=== PATIENT | male | born 2000 | race Two or more races ===

== ENCOUNTER → 2024-11-15 | Outpatient (CLI) | payer MEDICAID, SELFPAY ==
--- NOTE | 2024-11-15 15:43 | XR_ITS ---
Examination: Fingers, left hand fifth digit 3 views Technique: AP, oblique, lateral views left hand fifth digit 3 views. Exam date and time: November 07, 2024 1601 hours INDICATIONS: Injury to the hand October 27, 2024 with fifth digit pain. FINDINGS: 1.5 mm displaced acute chip fracture off the palmar base middle phalanx fifth digit No dislocation IMPRESSION: Positive for small acute displaced chip fracture off the palmar base middle phalanx fifth digit
== END | disposition home or self-care (01) ==
PROVIDERS: PCP Physician Assistant; Referring Provider Physician Assistant; Visit Provider Physician Assistant
DX: S62.627A Displaced fracture of middle phalanx of left little finger, initial encounter for closed fracture (principal); X58.XXXA Exposure to other specified factors, initial encounter
CPT/HCPCS: 73140

== ENCOUNTER → 2024-12-01 | Outpatient (CLI) | payer MEDICAID, SELFPAY ==
--- NOTE | 2024-12-01 16:11 | XR_ITS ---
Examination: Wrist, left 3 views Technique: Wrist AP, oblique, lateral 3 views Date and time of exam: December 01, 2024 at 1642 hours INDICATIONS: Injury to the wrist one month ago, wrist pain. FINDINGS: Tiny chip fracture off the base of the proximal phalanx third digit Distal radius distal ulna carpal bones appear intact IMPRESSION: Tiny chip fracture off the base of the proximal phalanx third digit
--- NOTE | 2024-12-01 16:11 | XR_ITS ---
Examination: Hand, left 3 views Technique: Hand AP, oblique, lateral 3 views Date and time of exam: December 01, 2024 1652 hours INDICATIONS: Football injury to the hand one month ago with persistent pain FINDINGS: 1 mm chip fracture off the base of the proximal phalanx third digit No dislocation No foreign body IMPRESSION: 1 mm chip fracture off the base of the proximal phalanx third digit with displacement There is no true lateral view of the fifth digit Suggest follow-up true lateral views fourth and fifth digits as clinically warranted
== END | disposition home or self-care (01) ==
PROVIDERS: PCP Physician Assistant
DX: S62.613A Displaced fracture of proximal phalanx of left middle finger, initial encounter for closed fracture (principal); S69.92XA Unspecified injury of left wrist, hand and finger(s), initial encounter; Y93.61 Activity, american tackle football
CPT/HCPCS: 73110; 73130

== ENCOUNTER 2025-03-08 10:30 | Outpatient (RCR) | payer MEDICAID, SELFPAY ==
--- NOTE | 2025-02-27 16:09 | PT.OIERPT ---
PT OP Initial Eval Patient Information Outpatient Physical Therapy Treatment Date: 02/27/25 Visit Reasons: fx left little finger Medical Diagnosis: [id number] Treatment Dx #1: Left 5th Digit Mobility Deficits Treatment Dx #2: Left Hand Weakness Start of Care: 02/27/25 Date of Onset: 02/14/25 Smoking Status Smoking Status: Never smoker Initial Assessment Subjective: Pt is a 24 y/o male s/p left 5th digit ORIF 12/27/24 due to fracture. Pt had the k-wire removed 02/14/25. Pt still has pain (7/10) with functional limitation. Pt has difficulty with gripping, lifting, chores, self care, cooking, cleaning, and performing recreational activities. Objective: Left Wrist AROM: all motions are WNL Left Wrist MMTs: grossly 3+/5 Left 5th Digit Flexion AROM MCP: 90 deg PIP: 61 deg DIP: 65 deg Scrap Handler Strength L: 78 lbs R: 115 lbs Assessment: Pt demonstrate left 5th digit mobility deficits with weakness leading to difficulty with ADLs. 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
--- NOTE | 2025-03-06 11:55 | PT.ODAYNRPT ---
PT Outpatient Daily Note OP Daily Note Outpatient Physical Therapy Treatment Date: 03/06/25 Visit Reasons: fx left little finger Subjective: Pt can make a fist with less pain now. Objective: Please see flow chart for list of ther ex perfomed Assessment: progressing with 5th digit flexion AROM with less pain reported. Pt tolerate all exercises instructed Plan: Continue with PT Length of Time (minutes) of Treatment: 30 Minutes Procedure Charges Therapeutic Exercise 30 minutes: Yes
--- NOTE | 2025-03-08 11:00 | PT.ODAYNRPT ---
PT Outpatient Daily Note OP Daily Note Outpatient Physical Therapy Treatment Date: 03/08/25 Visit Reasons: fx left little finger Subjective: Pt's hand is better. Pt can make a fist with less pain. Objective: Please see flow chart for list of ther ex performed Assessment: progressing with hand resistance exercises. Decrease 5th digit finger extensor tendon tightness during stretching Plan: Continue with PT Length of Time (minutes) of Treatment: 30 Minutes Procedure Charges Therapeutic Exercise 30 minutes: Yes
== END 2025-03-18 23:59 | disposition home or self-care (01) ==
LOC: CPTX 10:30
DX: M79.645 Pain in left finger(s) (principal); R53.1 Weakness; S62.627D Displaced fracture of middle phalanx of left little finger, subsequent encounter for fracture with routine healing; X58.XXXD Exposure to other specified factors, subsequent encounter
CPT/HCPCS: 97110; 97162

== ENCOUNTER 2025-03-31 10:30 | Outpatient (RCR) | payer MEDICAID, SELFPAY ==
--- NOTE | 2025-03-29 11:29 | PT.ODAYNRPT ---
PT Outpatient Daily Note OP Daily Note Outpatient Physical Therapy Treatment Date: 03/29/25 Visit Reasons: FX of left pinky finger Subjective: Pt's hand is much better. Pt can make a full fist now with minimal limitation. Pt's hand still feels weak. Objective: Please see flow chart for list of ther ex performed Assessment: tolerate exercises with minimal pain and progressing with 5th digit ROM Plan: Continue with PT Length of Time (minutes) of Treatment: 30 Minutes Procedure Charges Therapeutic Exercise 30 minutes: Yes
--- NOTE | 2025-03-31 10:53 | PTNOTE_ITS ---
PT Outpatient Daily Note OP Daily Note Outpatient Physical Therapy Treatment Date: 03/31/25 Visit Reasons: FX of left pinky finger Subjective: Pt is unsure if he has a follow up with surgeon. Pt's hand feels good and does not have any concerns to report. 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
== END 2025-04-17 23:59 | disposition home or self-care (01) ==
LOC: CPTX 10:30
DX: M79.642 Pain in left hand (principal); R53.1 Weakness; S62.627D Displaced fracture of middle phalanx of left little finger, subsequent encounter for fracture with routine healing; X58.XXXD Exposure to other specified factors, subsequent encounter
CPT/HCPCS: 97110

== ENCOUNTER 2025-05-04 10:30 | Outpatient (RCR) | payer MEDICAID, SELFPAY ==
--- NOTE | 2025-04-25 11:05 | PTNOTE_ITS ---
PT Outpatient Daily Note OP Daily Note Outpatient Physical Therapy Treatment Date: 04/25/25 Visit Reasons: Pinky finger Subjective: Pt reports her hand is doing better is able to do his normal activities but has some pain when he bumps his pinky on things. Pt reports 0/10 with ADLS, mentioned he has a follow up with his doctor the 18th of this month. Objective: Please see flow sheet for there xlist. L ANDI score 86lbs. 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 Plan: Continue with POC. Length of Time (minutes) of Treatment: 30 Minutes Procedure Charges Therapeutic Exercise 30 minutes: Yes
--- NOTE | 2025-05-04 11:34 | PT.ODAYNRPT ---
PT Outpatient Daily Note OP Daily Note Outpatient Physical Therapy Treatment Date: 05/04/25 Visit Reasons: Pinky finger Subjective: Pt reports finger is doing better, is back to doing most of daily activities just has some discomfort with bumping hand into objects. Pt shared that he is going to have a follow up with surgeon tomorrow to determine if he shoulde continue with PT. Objective: Please see flow sheet for ther ex list. 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 Plan: Continue with POC. Length of Time (minutes) of Treatment: 30 Minutes Procedure Charges Therapeutic Exercise 30 minutes: Yes
--- NOTE | 2025-06-02 12:25 | PT.ODS1RPT ---
PT OP Progress/Discharge Note Date of Service: 06/02/25 Progress Note/DC Note Progress Note/Discharge Note: DC Note Patient Information Visit Reasons: Pinky finger Service Continue Service or Discharge: Discharge Discharge Date: 06/02/25 Status Assessment: Pt has been seen for 6 visits (eval + 5 visits). Pt last treated on 05/04/25 and has not returned to therapy. At this time Pt will be d/c from care due to plan of care 05/30/25. Pt did not meet set goals in therapy; thank you for your referrals.
== END 2025-05-18 23:59 | disposition home or self-care (01) ==
LOC: CPTX 10:30
DX: M79.645 Pain in left finger(s) (principal); R53.1 Weakness; S62.627D Displaced fracture of middle phalanx of left little finger, subsequent encounter for fracture with routine healing; X58.XXXD Exposure to other specified factors, subsequent encounter
CPT/HCPCS: 97110